=== PATIENT | female | born 1960 | race Caucasian/White ===

== ENCOUNTER → 2019-06-09 | Outpatient (CLI) | payer BC ==
[~2019-06-09] MED LIST: ADVIL 200MG TA200 MG PO; AMBIEN 10MG10 MG PO; COZAAR 50MG50 MG/TAB PO; GLUCOPHAGE1000 MG PO; HYGROTON50 MG PO; LORATADINE10 MG PO; PRILOSEC 20MG20 MG PO
== END ==
LOC: MC.RAD 16:55
DX: Z12.31 Encounter for screening mammogram for malignant neoplasm of breast (principal); Z87.898 Personal history of other specified conditions

== ENCOUNTER 2019-06-12 09:05 | Day surgery (SDC) | payer BC ==
[~2019-06-12] VITALS: Ht 167.6 cm; Wt 96.4 kg
[~2019-06-12 09:05] MED LIST changes: -COZAAR 50MG50 MG/TAB PO; -GLUCOPHAGE1000 MG PO; -HYGROTON50 MG PO; -PRILOSEC 20MG20 MG PO
[2019-06-12 09:43] VITALS: BP 152/86; PULSE 88; TEMP 98
[2019-06-12] MEDS ORDERED: HYGROTON50 MG PO (09:52)
[2019-06-12] MEDS ORDERED: COZAAR 50MG50 MG/TAB PO (09:52)
[2019-06-12] MEDS ORDERED: PRILOSEC 20MG20 MG PO (09:53)
[2019-06-12] MEDS ORDERED: GLUCOPHAGE1000 MG PO (09:54)
[2019-06-12 11:05] VITALS: BP 115/63; PULSE 68
[2019-06-12 11:15] VITALS: BP 106/76; PULSE 73
--- NOTE | 2019-06-12 11:15 | NUR ---
Pt arrived back from colonoscopy procedure via cart with Endo RN. Pt was able to ambulate easily to chair with one stand by assist. VSS and WNL. Received chair side report from Endo RN, Verena. Reviewed discharge goals with patient, and she agrees with plan. Pt denies pain/nausea at this time and water and crackers brought per her request. Call light within reach.
--- NOTE | 2019-06-12 11:15 | NUR ---
Pt sitting comfortably in chair without pain or nausea. Huey Gary, called for pickup soon. Pt states she feels ready to go home. VSS and WNL. Pt able to eat crackers and drink water without problems.
[2019-06-12 11:33] VITALS: BP 122/74; PULSE 75
--- NOTE | 2019-06-12 11:35 | NUR ---
Pt meets criteria for discharge. Reviewed discharge information including signs/symptoms to watch for and when to call the dr or go to ED. Pt expressed understanding and had no further questions or concerns. VSS and WNL upon discharge.
== END 2019-06-12 11:44 | disposition home or self-care (01) ==
LOC: SDCO 09:05
DX: Z12.11 Encounter for screening for malignant neoplasm of colon (principal); I10 Essential (primary) hypertension; E66.9 Obesity, unspecified; K21.9 Gastro-esophageal reflux disease without esophagitis; K52.3 Indeterminate colitis; F41.9 Anxiety disorder, unspecified; E11.9 Type 2 diabetes mellitus without complications; Z90.710 Acquired absence of both cervix and uterus; Z90.49 Acquired absence of other specified parts of digestive tract; Z79.84 Long term (current) use of oral hypoglycemic drugs; Z87.891 Personal history of nicotine dependence
CPT/HCPCS: J2704; J7030

== ENCOUNTER → 2020-06-10 | Outpatient (CLI) | payer BC ==
[~2020-06-10] MED LIST changes: +COZAAR 50MG50 MG/TAB PO; +GLUCOPHAGE1000 MG PO; +HYGROTON50 MG PO; +PRILOSEC 20MG20 MG PO
== END ==
LOC: MC.RAD 07:45
DX: Z12.31 Encounter for screening mammogram for malignant neoplasm of breast (principal); Z98.82 Breast implant status

== ENCOUNTER → 2020-08-06 | Outpatient (CLI) | payer BC | LOC: COL.RAD 13:43 | DX: M25.572 Pain in left ankle and joints of left foot (principal); R60.0 Localized edema ==

== ENCOUNTER → 2021-06-28 | Outpatient (CLI) | payer BC | LOC: MC.RAD 07:21 | DX: Z12.31 Encounter for screening mammogram for malignant neoplasm of breast (principal) ==

== ENCOUNTER → 2022-07-06 | Outpatient (CLI) | payer BC | LOC: MC.RAD 06-28 07:00 | DX: Z12.31 Encounter for screening mammogram for malignant neoplasm of breast (principal); N64.89 Other specified disorders of breast ==